=== PATIENT | female | born 1995 | race Asian ===

== ENCOUNTER 2017-02-14 22:19 | Emergency (ER) | payer SELFPAY | END 2017-02-14 22:35 | disposition home or self-care (01) | LOC: CED 22:19 | DX: R10.9 Unspecified abdominal pain (principal); Z53.9 Procedure and treatment not carried out, unspecified reason ==

== ENCOUNTER 2018-07-25 22:40 | Emergency (ER) | payer BC ==
[2018-07-25] MEDS ORDERED: FAMOTIDINE 20 MG/NACL 50 ML IV ONE (22:55)
[2018-07-25] MEDS ORDERED: HYOSCYAMINE SULFATE 0.125 MG TAB PO ONE (22:55)
[2018-07-25] MEDS ORDERED: LIDOCAINE 2% VISCOUS 15 ML UDCUP PO ONE (22:55)
[2018-07-25] MEDS ORDERED: MAG HYDROX/AL HYDROX/SIMETH 30 ML UDCUP PO ONE (22:55)
--- NOTE | 2018-07-25 22:58 | EDPHY ---
H & P Stated Complaint: abd pain, sharp epigastric pain Time Seen by Provider: 07/25/18 22:45 HPI/ROS: HPI The patient presents with epigastric abdominal pain that has been present since 8:30 p.m. Tonight and started suddenly and has been constant. She was making dinner when the pain happened, she had not eaten a meal recently. The pain is sharp, worse when she exhales, not improved with Tums that a friend gave her. The pain does not radiate, is not associated with nausea or vomiting. She is not drinking alcohol today. She does not take NSAIDs. She denies any dark or bloody stools. She did recently start back at school so is feeling some stressed surrounding this though this is minimal.. REVIEW OF SYSTEMS Constitutional: No fever, no chills. Eyes: No discharge. ENT: No sore throat. Cardiovascular: No chest pain, no palpitations. Respiratory: No cough, no shortness of breath. Gastrointestinal: See HPI Genitourinary: No hematuria. Musculoskeletal: No back pain. Skin: No rashes. Neurological: No headache. PMHx: Healthy Soc Hx: [employer] student, nonsmoker PHYSICAL General Appearance: Alert, no distress Eyes: Pupils equal and round no pallor or injection ENT, Mouth: Mucous membranes moist Respiratory: There are no retractions, lungs are clear to auscultation Cardiovascular: Regular rate and rhythm Gastrointestinal: Abdomen is soft and non-tender, no masses, bowel sounds normal Neurological: A&O, moves all extremities Skin: Warm and dry, no rashes Musculoskeletal: Neck is supple non tender Extremities: symmetrical, full range of motion Psychiatric: Patient is oriented X 3, there is no agitation Source: Patient Exam Limitations: No limitations - Personal History LMP (Females 10-55): Now Current Tetanus Diphtheria and Acellular Pertussis (TDAP): Yes - Medical/Surgical History Hx Asthma: No Hx Chronic Respiratory Disease: No Hx Diabetes: No Hx Cardiac Disease: No Hx Renal Disease: No Hx Cirrhosis: No Hx Alcoholism: No Hx HIV/AIDS: No Hx Splenectomy or Spleen Trauma: No Other PMH: denies - Social History Smoking Status: Never smoked Constitutional: Initial Vital Signs Temperature (C) 36.6 C 07/25/18 22:41 Heart Rate 68 07/25/18 22:41 Respiratory Rate 18 07/25/18 22:41 Blood Pressure 122/88 H 07/25/18 22:41 O2 Sat (%) 96 07/25/18 22:41 O2 Delivery Mode Room Air Allergies/Adverse Reactions: No Known Allergies Allergy (Unverified 07/25/18 22:41) Home Medications: Medication Instructions Recorded Famotidine [Pepcid 20 MG (*)] 20 mg PO BID #30 tab 07/25/18 Medical Decision Making Differential Diagnosis: 23-year-old healthy female presents with about 2.5 hr of acute onset of epigastric abdominal pain which is sharp without radiation and without any associated features. On exam, vital signs are normal, she is well-appearing, her abdominal exam is benign. Differential diagnosis includes gastritis, GERD, cholecystitis, pancreatitis. Plan for GI cocktail, H2 mary, basic labs. In the emergency department, patient received above medications and felt much better. When I reassessed her abdominal exam was benign again. I plan to discharge her with famotidine and instructions for bland diet. I suspect she is suffering from gastritis. - Data Points Laboratory Results: Laboratory Results 07/25/18 23:10 07/25/18 23:10 07/25/18 07/25/18 23:10 23:10 WBC 6.19 10^3/uL 10^3/uL (3.80-9.50) RBC 3.82 10^6/uL L 10^6/uL (4.18-5.33) Hgb 13.4 g/dL g/dL (12.6-16.3) Hct 38.5 % % (38.0-47.0) MCV 100.8 fL H fL (81.5-99.8) MCH 35.1 pg H pg (27.9-34.1) MCHC 34.8 g/dL g/dL (32.4-36.7) RDW 11.0 % L % (11.5-15.2) Plt Count 264 10^3/uL 10^3/uL (150-400) MPV 8.3 fL L fL (8.7-11.7) Neut % (Auto) 55.3 % % (39.3-74.2) Lymph % (Auto) 35.9 % % (15.0-45.0) Gonzales % (Auto) 7.4 % % (4.5-13.0) Eos % (Auto) 1.0 % % (0.6-7.6) Baso % (Auto) 0.2 % L % (0.3-1.7) Nucleat RBC Rel Count 0.0 % % (0.0-0.2) Absolute Neuts (auto) 3.43 10^3/uL 10^3/uL (1.70-6.50) Absolute Lymphs (auto) 2.22 10^3/uL 10^3/uL (1.00-3.00) Absolute Monos (auto) 0.46 10^3/uL 10^3/uL (0.30-0.80) Absolute Eos (auto) 0.06 10^3/uL 10^3/uL (0.03-0.40) Absolute Basos (auto) 0.01 10^3/uL L 10^3/uL (0.02-0.10) Absolute Nucleated RBC 0.00 10^3/uL 10^3/uL (0-0.01) Immature Gran % 0.2 % % (0.0-1.1) Immature Gran # 0.01 10^3/uL 10^3/uL (0.00-0.10) Sodium 141 mEq/L mEq/L (135-145) Potassium 3.9 mEq/L mEq/L (3.3-5.0) Chloride 106 mEq/L mEq/L (97-110) Carbon Dioxide 27 mEq/l mEq/l (22-31) Anion Gap 8 mEq/L mEq/L (8-16) BUN 11 mg/dL mg/dL (7-23) Creatinine 0.6 mg/dL mg/dL (0.6-1.0) Estimated GFR > 60 Glucose 91 mg/dL mg/dL (70-100) Calcium 10.3 mg/dL mg/dL (8.5-10.4) Total Bilirubin 0.6 mg/dL mg/dL (0.1-1.4) Conjugated Bilirubin 0.0 mg/dL mg/dL (0.0-0.5) Unconjugated Bilirubin 0.6 mg/dL mg/dL (0.0-1.1) AST 22 IU/L IU/L (14-46) ALT 20 IU/L IU/L (9-52) Alkaline Phosphatase 66 IU/L IU/L (38-126) Total Protein 7.0 g/dL g/dL (6.3-8.2) Albumin 4.5 g/dL g/dL (3.5-5.0) Lipase 85 IU/L IU/L (23-300) Medications Given: Discontinued Medications Al Hydroxide/Mg Hydroxide (Maalox Susp) 30 ml PO ONCE ONE Stop: 07/25/18 22:56 Last Admin: 07/25/18 23:03 Dose: 30 ml Hyoscyamine Sulfate (Levsin, Hyomax-Sl) 0.25 mg PO ONCE ONE Stop: 07/25/18 22:56 Last Admin: 07/25/18 23:03 Dose: 0.25 mg Famotidine/Sodium Chloride (Pepcid 20 Mg (Premix)) 50 mls @ 200 mls/hr IV EDNOW ONE Stop: 07/25/18 23:09 Last Admin: 07/25/18 23:15 Dose: 50 mls Lidocaine (Lidocaine 2% Viscous) 15 ml PO ONCE ONE Stop: 07/25/18 22:56 Last Admin: 07/25/18 23:03 Dose: 15 ml Departure - Departure Disposition: Home, Routine, Self-Care Clinical Impression: Epigastric abdominal pain Gastritis Qualifiers: Gastritis type: unspecified gastritis Chronicity: acute Gastritis bleeding: without bleeding Qualified Code(s): K29.00 - Acute gastritis without bleeding Condition: Good Instructions: Gastritis (ED), Diet for Stomach Ulcers and Gastritis (ED) Additional Instructions: If your symptoms return or become an ongoing problem, I recommend that you follow up with your primary care physician. I recommend that you take the famotidine for 2-3 days and see if your feeling better. If you are, then you can discontinue the medication. Referrals: KATERIN BATRES [Other] - As per Instructions Prescriptions: Famotidine [Pepcid 20 MG (*)] 20 mg PO BID #30 tab
[2018-07-25 23:19] LABS: PLATELET COUNT 264 10^3/uL (150-400)
[2018-07-25 23:54] VITALS: BP 125/92
== END 2018-07-25 23:54 | disposition home or self-care (01) ==
DX: K29.00 Acute gastritis without bleeding (principal)
CPT/HCPCS: 96374